=== PATIENT | female | born 1995 | race Two or more races ===

== ENCOUNTER 2019-06-10 14:31 | Observation (INO) | payer SELFPAY ==
[~2019-06-10] VITALS: Ht 162.6 cm; Wt 62.6 kg
[2019-06-10] MEDS ORDERED: LACTATED RINGER'S 1,000 ML IV ONE (15:00)
[2019-06-10] MEDS ORDERED: TERBUTALINE SULFATE 1 MG/ML 1ML VIAL SC SCH (15:00)
[2019-06-10] MEDS ORDERED: TERBUTALINE SULFATE 1 MG/ML 1ML VIAL SC ONE (15:03)
== END 2019-06-10 16:30 | disposition home or self-care (01) | DRG 833 ==
LOC: LDRP 14:31
PROVIDERS: ADMIT Specialist; ATTEND Specialist
DX: O60.03 Preterm labor without delivery, third trimester (principal); O26.893 Other specified pregnancy related conditions, third trimester; R10.9 Unspecified abdominal pain; Z3A.30 30 weeks gestation of pregnancy
CPT/HCPCS: 59025; 81002; 96372; G0378; J3105; 96361; 96366

== ENCOUNTER 2019-06-23 09:00 | Observation (INO) | payer SELFPAY ==
[~2019-06-23] VITALS: Ht 160 cm; Wt 64.4 kg
[2019-06-23] MEDS ORDERED: PREN-96 PO (09:27)
[2019-06-23] MEDS ORDERED: TERBUTALINE SULFATE 1 MG/ML 1ML VIAL SC SCH (10:00)
== END 2019-06-23 11:10 | disposition home or self-care (01) | DRG 833 ==
LOC: LDRP 09:00
PROVIDERS: ADMIT Obstetrics & Gynecology; ATTEND Obstetrics & Gynecology
DX: O60.03 Preterm labor without delivery, third trimester (principal); Z3A.32 32 weeks gestation of pregnancy
CPT/HCPCS: 59025; 81002; 96372; G0378; J3105

== ENCOUNTER 2019-06-26 09:19 | Observation (INO) | payer MEDICAID ==
[~2019-06-26 09:19] MED LIST: PREN-96 PO
[2019-06-26] MEDS ORDERED: NIF10C GT (11:07)
== END 2019-06-26 10:44 | disposition home or self-care (01) | DRG 563 ==
LOC: LDRP 09:19
PROVIDERS: ADMIT Obstetrics & Gynecology; ATTEND Obstetrics & Gynecology
DX: O60.03 Preterm labor without delivery, third trimester (principal); Z3A.32 32 weeks gestation of pregnancy
CPT/HCPCS: 59025; 81002; G0378

== ENCOUNTER 2019-07-03 09:03 | Observation (INO) | payer MEDICAID ==
[~2019-07-03] VITALS: Ht 160 cm; Wt 63.5 kg
[~2019-07-03 09:03] MED LIST changes: +NIF10C GT
[2019-07-03] MEDS ORDERED: TERBUTALINE SULFATE 1 MG/ML 1ML VIAL SC SCH (10:00)
[2019-07-03] MEDS ORDERED: TERBUTALINE SULFATE 1 MG/ML 1ML VIAL SC ONE (10:20)
== END 2019-07-03 12:05 | disposition home or self-care (01) | DRG 563 ==
LOC: LDRP 09:03
PROVIDERS: ADMIT Obstetrics & Gynecology; ATTEND Obstetrics & Gynecology
DX: O60.03 Preterm labor without delivery, third trimester (principal); Z3A.34 34 weeks gestation of pregnancy
CPT/HCPCS: 59025; 81002; 84112; 96372; G0378; J3105

== ENCOUNTER 2019-07-10 09:16 | Observation (INO) | payer MEDICAID | END 2019-07-10 10:10 | disposition home or self-care (01) | DRG 563 | LOC: LDRP 09:16 | PROVIDERS: ADMIT Obstetrics & Gynecology; ATTEND Obstetrics & Gynecology | DX: O60.03 Preterm labor without delivery, third trimester (principal); Z3A.34 34 weeks gestation of pregnancy | CPT/HCPCS: 59025; 81002; G0378 ==

== ENCOUNTER 2019-07-13 23:42 | Observation (INO) | payer MEDICAID ==
[~2019-07-13] VITALS: Ht 160 cm; Wt 64.9 kg
[~2019-07-13 23:42] MED LIST changes: -NIF10C GT
[2019-07-14] MEDS ORDERED: TERBUTALINE SULFATE 1 MG/ML 1ML VIAL SC SCH (00:30)
[2019-07-14] MEDS ORDERED: NIFEdipine 10 MG CAP PO ONE (00:30)
[2019-07-14] MEDS ORDERED: TERBUTALINE SULFATE 1 MG/ML 1ML VIAL SC ONE (00:31)
[2019-07-14 03:21] LABS: Basophils # (auto) 0 10 ^3/uL (0-0.2); Basophils % (auto) 0.3 % (0.0-2.0); Eosinophils # (auto) 0 10 ^3/uL (0-0.8); Eosinophils % (auto) 0.3 % (0.0-7.0); Hematocrit 40.8 % (36.0-46.0); Hemoglobin 13.1 g/dL (12.2-16.2); Lymphocytes # (auto) 2.5 10 ^3/uL (0.4-5.4); Lymphocytes % (auto) 30.2 % (10.0-50.0); Mean Corpuscular Hemoglobin 26.6 pg (28.0-32.0); Mean Corpuscular Volume 82.9 fL (80.0-100.0); Monocytes # (auto) 0.4 10 ^3/uL (0-1.3); Neutrophils # (auto) 5.3 10 ^3/uL (1.6-8.6); Neutrophils % (auto) 64.2 % (37.0-80.0); Nucleated Red Blood Cells % 0.1 %; Platelet Count (auto) 237 10^3/uL (140-450); Red Blood Cells 4.92 10^6/uL (4.0-5.20); White Blood Cell 8.3 10^3/uL (4.4-10.8)
[2019-07-14 03:36] LABS: Albumin 2.5 g/dL (3.4-5.0); BUN/Creatinine Ratio 13.6; Calcium 8.6 mg/dL (8.5-10.1)
--- NOTE | 2019-07-14 03:37 | NUR ---
Received critical lab results from Lab. Potassium 2.7.
[2019-07-14 03:38] LABS: Bilirubin, Total 0.3 mg/dL (0.2-1.0); Total Protein 7.4 g/dL (6.4-8.2)
[2019-07-14 03:39] LABS: Potassium 2.7 mmol/L (3.5-5.1)
--- NOTE | 2019-07-14 03:40 | NUR ---
Call placed to Dr Almeida and lab results reported, including Potassium 2.7, AST/SGOT 40, ALT/SGPT 72. Orders received as followed. Phone in RX for Potassium 40meq PO Qday for 3 days, "Actigal"300mg PO BID #[id number]. This RN Verbalized understanding.
--- NOTE | 2019-07-14 03:55 | NUR ---
Call placed to pt for update on her plan of care. 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 Pt verbalized understanding and all questions answered.
== END 2019-07-14 03:30 | disposition home or self-care (01) | DRG 563 ==
LOC: LDRP 23:42
PROVIDERS: ADMIT Obstetrics & Gynecology; ATTEND Obstetrics & Gynecology
DX: O60.03 Preterm labor without delivery, third trimester (principal); O26.613 Liver and biliary tract disorders in pregnancy, third trimester; K83.1 Obstruction of bile duct; Z3A.35 35 weeks gestation of pregnancy
CPT/HCPCS: 36415; 59025; 80053; 81002; 85025; 96372; G0378; J3105

== ENCOUNTER 2019-07-17 09:17 | Observation (INO) | payer MEDICAID ==
[2019-07-17] MEDS ORDERED: URSO300C9 PO (10:54)
[2019-07-17] MEDS ORDERED: NIF10C GT (10:56)
== END 2019-07-17 11:20 | disposition home or self-care (01) | DRG 566 ==
LOC: LDRP 09:17
PROVIDERS: ADMIT Obstetrics & Gynecology; ATTEND Obstetrics & Gynecology
DX: O26.613 Liver and biliary tract disorders in pregnancy, third trimester (principal); K83.1 Obstruction of bile duct; O60.03 Preterm labor without delivery, third trimester; O26.893 Other specified pregnancy related conditions, third trimester; L29.9 Pruritus, unspecified; Z3A.35 35 weeks gestation of pregnancy
CPT/HCPCS: 59025; 76818; 81002; G0378

== ENCOUNTER 2019-07-19 09:15 | Observation (INO) | payer MEDICAID ==
[~2019-07-19] VITALS: Ht 160 cm; Wt 64.9 kg
[~2019-07-19 09:15] MED LIST changes: +NIF10C GT; +URSO300C9 PO
[2019-07-19] MEDS ORDERED: BETAMETHASONE ACET (6MG/ML) 5ML VIAL IM SCH (11:00)
[2019-07-19 11:21] LABS: Albumin 2.6 g/dL (3.4-5.0); Calcium 9.3 mg/dL (8.5-10.1); Potassium 4.2 mmol/L (3.5-5.1)
[2019-07-19 11:33] LABS: BUN/Creatinine Ratio 13.4; Bilirubin, Total 0.3 mg/dL (0.2-1.0); Total Protein 7.5 g/dL (6.4-8.2)
== END 2019-07-19 11:48 | disposition home or self-care (01) | DRG 566 ==
LOC: LDRP 09:15
PROVIDERS: ADMIT Specialist; ATTEND Specialist
DX: O26.613 Liver and biliary tract disorders in pregnancy, third trimester (principal); K83.1 Obstruction of bile duct; O26.893 Other specified pregnancy related conditions, third trimester; L29.9 Pruritus, unspecified; O62.9 Abnormality of forces of labor, unspecified; Z3A.36 36 weeks gestation of pregnancy
CPT/HCPCS: 36415; 59025; 76818; 80053; 81002; 84112; 96372; G0378; J0702

== ENCOUNTER 2019-07-20 10:40 | Observation (INO) | payer MEDICAID ==
[~2019-07-20] VITALS: Ht 160 cm; Wt 64.9 kg
[2019-07-20] MEDS ORDERED: BETAMETHASONE ACET (6MG/ML) 5ML VIAL IM SCH (11:00)
== END 2019-07-20 12:00 | disposition home or self-care (01) | DRG 566 ==
LOC: LDRP 10:40
PROVIDERS: ADMIT Specialist; ATTEND Specialist
DX: O26.613 Liver and biliary tract disorders in pregnancy, third trimester (principal); K83.1 Obstruction of bile duct; O60.03 Preterm labor without delivery, third trimester; O26.893 Other specified pregnancy related conditions, third trimester; L29.9 Pruritus, unspecified; Z3A.36 36 weeks gestation of pregnancy
CPT/HCPCS: 59025; 81002; 96372; G0378

== ENCOUNTER 2019-07-23 10:20 | Observation (INO) | payer MEDICAID | END 2019-07-23 11:10 | disposition home or self-care (01) | DRG 566 | LOC: LDRP 10:20 | PROVIDERS: ADMIT Obstetrics & Gynecology; ATTEND Obstetrics & Gynecology | DX: O26.613 Liver and biliary tract disorders in pregnancy, third trimester (principal); K83.1 Obstruction of bile duct; Z3A.36 36 weeks gestation of pregnancy | CPT/HCPCS: 59025; 76818; 81002; G0378 ==